=== PATIENT | female | born 1995 | race Caucasian/White ===

== ENCOUNTER 2018-01-27 17:47 | Emergency (ER) | payer OTHER ==
[~2018-01-27] VITALS: Ht 154.9 cm; Wt 77.6 kg
[2018-01-27 17:54] VITALS: Ht 154.9 cm; Wt 77.6 kg
[2018-01-27 21:52] VITALS: BP 123/78
== END 2018-01-27 21:52 | disposition home or self-care (01) ==
LOC: ED 17:47
DX: R07.89 Other chest pain (principal); R00.2 Palpitations
CPT/HCPCS: Q0092